=== PATIENT | female | born 1960 | race Caucasian/White ===

== ENCOUNTER 2016-12-18 14:08 | Emergency (ER) | payer MEDICARE, OTHER ==
[~2016-12-18] VITALS: Ht 167.6 cm; Wt 132.0 kg
[~2016-12-18 14:08] MED LIST: ALLO100T PO; ALLO300T PO; AMLO10TA2 PO; ATOR40TA59 PO; BACL10TA PO; CIPR500T PO; CLOB15CR2 TP; CLON1TAB3 PO; DIVA250T6 PO; DIVA500T9 PO; DOCU-27 PO; ESCI20TA PO; FLUT1DIS5 IH; FURO80TA3 PO; HYDR-963 PO; INSU100C SQ; INSU100I13 SQ; LEVO150T5 PO; MAGN400T3 PO; METF10002 PO; METO-269 PO; METO5TAB4 PO; METR500T4 PO; MORP30TA3 PO; ONDA4TAB12 PO; OXYB5TAB PO; POTA20TA4 PO; PRED20TA PO; PREG75CA PO; SPIR25TA3 PO; SUMA25TA3 PO; SUMA50TA3 PO; VENL75TA2 PO
[2016-12-18 14:42] VITALS: BP 131/61
--- NOTE | 2016-12-18 15:23 | PHYS DOC ---
Past Medical History Past Medical History: Cancer, COPD, Diabetes-Type II, Hypertension, Other Additional Past Medical Histor: DJD, OA, CHRONIC PAIN Past Surgical History: Appendectomy, Cholecystectomy, Hysterectomy, Other Additional Past Surgical Histo: BILAT KNEE, LAPAROSCOPY, BOWELL, HERNIA Alcohol Use: None Drug Use: None Adult General Chief Complaint Chief Complaint: ABSCESS HPI HPI Patient is a 56 year old female who presents with bump to L posterior thigh. Patient reports she has had a small bump on the back of her L leg just below her buttock. This has been present for the past month and a half, but today when she sat down she noticed it was bigger than it has been. No trauma to the area or other clear inciting event. It is painful when walking or sitting; she has taken hydrocodone occasionally when it becomes too painful. She denies fever or any other acute symptoms. Patient does report that about 5 days ago she finished a course of augmentin for an abscess on her R foot. Review of Systems Review of Systems Constitutional: Denies fever or chills Eyes: Denies change in visual acuity or eye pain HENT: Denies nasal congestion or sore throat Respiratory: Denies cough or shortness of breath Cardiovascular: Denies chest pain GI: Denies abdominal pain, nausea, vomiting, bloody stools or diarrhea : Denies dysuria or hematuria Musculoskeletal: Bump at base of L buttock Integument: Denies rash or skin lesions Neurologic: Denies headache, focal weakness or sensory changes Current Medications Current Medications Current Medications Medications (Trade) Dose Ordered Sig/Promise Start Time Stop Time Status Last Admin Dose Admin Oxycodone HCl (Roxicodone) 5 mg 1X ONCE 12/18/16 15:30 12/18/16 15:31 DC 12/18/16 15:30 5 MG Allergies Allergies Allergies Coded Allergies Type Severity Reaction Last Updated Verified butorphanol Allergy Intermediate Rash and veins in arms swelled 04/13/16 Yes fentanyl Allergy Intermediate BOWEL/BLADDER INCONTINENCE 04/13/16 Yes gabapentin Allergy Intermediate bowel and bladder incontinence 04/13/16 Yes nalbuphine Allergy Intermediate bowel/bladder incontinence 04/13/16 Yes Physical Exam Physical Exam Constitutional: Well developed, well nourished, no acute distress, non-toxic appearance HENT: Normocephalic, atraumatic, bilateral external ears normal Eyes: EOMI, conjunctiva normal, no discharge Neck: Normal range of motion, no stridor Cardiovascular: Heart rate normal, regular rhythm, no murmur Lungs & Thorax: Bilateral breath sounds clear to auscultation; wearing baseline O2 per NC Abdomen: Bowel sounds normal, soft, non-distended, no TTP Skin: Warm, dry, no erythema, no rash Extremities: 2x4cm mass at base of L buttock with overlying contusion, mildly TTP; no warmth to touch, erythema, fluctuance noted; bruising also noted to R medial leg near knee Neurologic: Alert and oriented X 3, no gross deficits noted Psychologic: Affect normal, judgement normal, mood normal Current Patient Data Vital Signs Vital Signs Date Time Temp Pulse Resp B/P Pulse Ox O2 Delivery O2 Flow Rate FiO2 12/18/16 15:30 20 94 3.0 12/18/16 14:42 97.7 68 131/61 Nasal Cannula 97.7 Lab Values Laboratory Tests Test 12/18/16 15:15 White Blood Count 5.6x10^3/uL (4.0-11.0) Red Blood Count 3.49x10^6/uL (3.50-5.40) L Hemoglobin 11.2g/dL (12.0-15.5) L Hematocrit 33.9% (36.0-47.0) L Mean Corpuscular Volume 97fL (79-100) Mean Corpuscular Hemoglobin 32pg (25-35) Mean Corpuscular Hemoglobin Concent 33g/dL (31-37) Red Cell Distribution Width 15.8% (11.5-14.5) H Platelet Count 181x10^3/uL (140-400) Neutrophils (%) (Auto) 72% (31-73) Lymphocytes (%) (Auto) 15% (24-48) L Monocytes (%) (Auto) 10% (0-9) H Eosinophils (%) (Auto) 3% (0-3) Basophils (%) (Auto) 1% (0-3) Neutrophils # (Auto) 4.0x10^3uL (1.8-7.7) Lymphocytes # (Auto) 0.8x10^3/uL (1.0-4.8) L Monocytes # (Auto) 0.5x10^3/uL (0.0-1.1) Eosinophils # (Auto) 0.2x10^3/uL (0.0-0.7) Basophils # (Auto) 0.0x10^3/uL (0.0-0.2) Prothrombin Time 13.2SEC (11.7-14.0) Prothrombin Time INR 1.1 (0.8-1.1) PTT 28SEC (24-38) Laboratory Tests 12/18/16 15:15 EKG EKG [] Radiology/Procedures Radiology/Procedures [] Course & Med Decision Making Course & Med Decision Making Pertinent Labs and Imaging studies reviewed. (See chart for details) Patient is 56-year-old female who presents with bump at left lower buttock. Physical exam reveals area that appears to be hematoma of unclear etiology. No evidence of abscess or cellulitis. Also has bruising medial right lower extremity. Will obtain CBC and coags to evaluate. Oral pain meds ordered for patient comfort. Labs notable for mild anemia at baseline. White blood count and platelets within normal limits; coags are okay. Discussed results with patient. Discussed need for close follow-up with PCP. Patient discharged with strict return precautions. Dragon Disclaimer Dragon Disclaimer This electronic medical record was generated, in whole or in part, using a voice recognition dictation system. Departure Departure Impression: Primary Impression: Hematoma Disposition: 01 HOME, SELF-CARE Condition: STABLE Referrals: MIKAELA RICHEY (PCP) Patient Instructions: Hematoma Additional Instructions: Thank you for allowing us to provide care today in the Emergency Department. Take the pain medication that you have at home for any further pain. Schedule a follow up appointment with your primary care doctor as soon as possible. Return promptly to the Emergency Department if you develop any new or concerning symptoms, such as fever. AMMY TOLENTINO MD Dec 18, 2016 15:23
[2016-12-18] MEDS ORDERED: OXYCODONE IR 5 MG TABLET. PO ONE (15:30)
[2016-12-18 15:33] LABS: BASO % 1 % (0-3); EOS % 3 % (0-3); HEMATOCRIT 33.9 % (36.0-47.0); HEMOGLOBIN 11.2 g/dL (12.0-15.5); LYMPH # 0.8 x10^3/uL (1.0-4.8); LYMPH % 15 % (24-48); MEAN CORPUSCULAR HEMOGLOBIN 32 pg (25-35); MEAN CORPUSCULAR HGB CONC 33 g/dL (31-37); MEAN CORPUSCULAR VOLUME 97 fL (79-100); MONO % 10 % (0-9); NEUT % 72 % (31-73); PLATELET COUNT 181 x10^3/uL (140-400); RED BLOOD COUNT 3.49 x10^6/uL (3.50-5.40); RED CELL DISTRIBUTION WIDTH 15.8 % (11.5-14.5); WHITE BLOOD COUNT 5.6 x10^3/uL (4.0-11.0)
[2016-12-18 15:45] LABS: INR 1.1 (0.8-1.1); PROTHROMBIN TIME PATIENT 13.2 SEC (11.7-14.0)
== END 2016-12-18 17:40 | disposition home or self-care (01) ==
LOC: ER 14:08
DX: M79.81 Nontraumatic hematoma of soft tissue (principal); G89.29 Other chronic pain; E11.9 Type 2 diabetes mellitus without complications; J44.9 Chronic obstructive pulmonary disease, unspecified; I10 Essential (primary) hypertension; M19.90 Unspecified osteoarthritis, unspecified site; Z88.8 Allergy status to other drugs, medicaments and biological substances
CPT/HCPCS: 36415; 85027; 85610; 85730; 99284

== ENCOUNTER 2017-01-18 13:03 | Inpatient (IN) | payer MEDICARE, OTHER ==
[~2017-01-18] VITALS: Ht 167.6 cm; Wt 129.3 kg
--- NOTE | 2017-01-18 14:25 | RAD ---
CT scan of the head without contrast 01/18/2017 Clinical History: Altered mental status. Head trauma.. Technique: Unenhanced, contiguous, 5 mm axial sections were obtained through the head. One or more of the following individualized dose reduction techniques were utilized for this study: 1. Automated exposure control. 2. Adjustment of the mA and/or kV according to patient size. 3. Use of iterative reconstruction technique. Findings: Comparison study is dated 04/07/2016. There is generalized parenchymal atrophy. Small scattered areas of decreased attenuation are seen within the periventricular and subcortical white matter of both cerebral hemispheres consistent with areas of small vessel ischemic disease. No acute parenchymal abnormality is seen. No extra-axial fluid collection is noted. No skull fracture is seen. Impression: No acute intracranial abnormality is seen.
--- NOTE | 2017-01-18 14:40 | RAD ---
Portable chest, 01/18/2017: History: Fall Comparison is made to a study from 11/20/2007. The heart size and pulmonary vascularity are at the upper limits of normal. No pulmonary infiltrates are seen. There is no evidence of pleural fluid or pneumothorax. There is a curvilinear radiopacity projected over the right hilum. This has the appearance of a tube fragment or other artifact. Is there a corresponding radiopacity on the surface of the patient? This was not visible on the previous study. A right shoulder prosthesis is in place. IMPRESSION: 1. No acute cardiopulmonary abnormality is detected. 2. Curvilinear radiopaque foreign body projected over the right hilum of uncertain significance.
--- NOTE | 2017-01-18 14:41 | RAD ---
Pelvis with right hip, 2 views, 01/18/2017: History: Fall No fracture or dislocation is identified. There are mild degenerative changes at the hip joints. Degenerative changes are also noted in the lower lumbar spine. IMPRESSION: No acute bony abnormality is detected.
[2017-01-18 15:05] LABS: BASO % 0 % (0-3); EOS % 3 % (0-3); HEMATOCRIT 32.2 % (36.0-47.0); HEMOGLOBIN 10.6 g/dL (12.0-15.5); LYMPH # 0.6 x10^3/uL (1.0-4.8); LYMPH % 14 % (24-48); MEAN CORPUSCULAR HEMOGLOBIN 32 pg (25-35); MEAN CORPUSCULAR HGB CONC 33 g/dL (31-37); MEAN CORPUSCULAR VOLUME 98 fL (79-100); MONO % 10 % (0-9); NEUT % 73 % (31-73); PLATELET COUNT 139 x10^3/uL (140-400); RED BLOOD COUNT 3.29 x10^6/uL (3.50-5.40); RED CELL DISTRIBUTION WIDTH 14.6 % (11.5-14.5); WHITE BLOOD COUNT 4.5 x10^3/uL (4.0-11.0)
[2017-01-18 15:27] LABS: CALCIUM 8.9 mg/dL (8.5-10.1); CREATININE 1.2 mg/dL (0.6-1.0); GFR 46.1; POTASSIUM 4.4 mmol/L (3.5-5.1)
[2017-01-18] MEDS ORDERED: NALOXONE 0.4 MG/ML VIAL. IV ONE (15:30)
[2017-01-18] MEDS ORDERED: IV NORMAL SALINE 500ML BAG 500 ML IV ONE (15:30)
[2017-01-18] MEDS ORDERED: ONDANSETRON PF 4 MG/2 ML VIAL. IV ONE (15:30)
[2017-01-18] MEDS: IV NORMAL SALINE 1000ML BAG 1,000 ML IV SCH (15:31)
[2017-01-18] MEDS ORDERED: ONDANSETRON PF 4 MG/2 ML VIAL. IV PRN (15:45)
--- NOTE | 2017-01-18 15:49 | PHYS DOC ---
Past Medical History Past Medical History: Cancer, COPD, Diabetes-Type II, Hypertension, Other Additional Past Medical Histor: DJD, OA, CHRONIC PAIN Past Surgical History: Appendectomy, Cholecystectomy, Hysterectomy, Other Additional Past Surgical Histo: BILAT KNEE, LAPAROSCOPY, BOWELL, HERNIA Alcohol Use: None Drug Use: None Adult General Chief Complaint Chief Complaint: MECHANICAL FALL HPI HPI 56-year-old female who presents after she states she had a brief syncopal episode after she was bending over to clean stool off herself at home. Patient is staying at [facility]. Patient is apparently opiate dependent and history of chronic pain. Patient at this time is acutely altered but is able to respond to painful stimulus and answer all my basic questions. She is requiring supplemental oxygen and in no acute distress. She has no obvious injuries but does complain of some right-sided hip pain that she states is new since her fall. She does have a ankle device from a previous injury. There is no obvious deformity or swelling seen in either upper or lower extremities. She denies any headache. She denies hitting her head. She is not on any blood thinners. Review of Systems Review of Systems Constitutional: Denies fever or chills [] Eyes: Denies change in visual acuity, redness, or eye pain [] HENT: Denies nasal congestion or sore throat [] Respiratory: Denies cough or shortness of breath [] Cardiovascular: No additional information not addressed in HPI [] GI: Denies abdominal pain, nausea, vomiting, bloody stools or diarrhea [] : Denies dysuria or hematuria [] Musculoskeletal: Denies back pain or joint pain [] Integument: Denies rash or skin lesions [] Neurologic: Denies headache, focal weakness or sensory changes [] Endocrine: Denies polyuria or polydipsia [] Current Medications Current Medications Current Medications Medications (Trade) Dose Ordered Sig/Promise Start Time Stop Time Status Last Admin Dose Admin Naloxone HCl 0.4 mg 0.4 mg 1X ONCE 01/18/17 15:30 01/18/17 15:31 DC Ondansetron HCl (Zofran) 4 mg 1X ONCE 01/18/17 15:30 01/18/17 15:31 DC Sodium Chloride (Iv Sodium Chloride 0.9% 500ml Bag) 500 ml @ 500 mls/hr 1X ONCE 01/18/17 15:30 01/18/17 16:29 Allergies Allergies Allergies Coded Allergies Type Severity Reaction Last Updated Verified butorphanol Allergy Intermediate Rash and veins in arms swelled 04/13/16 Yes fentanyl Allergy Intermediate BOWEL/BLADDER INCONTINENCE 04/13/16 Yes gabapentin Allergy Intermediate bowel and bladder incontinence 04/13/16 Yes nalbuphine Allergy Intermediate bowel/bladder incontinence 04/13/16 Yes Physical Exam Physical Exam Constitutional: Well developed, well nourished, no acute distress, non-toxic appearance. [] HENT: Normocephalic, atraumatic, bilateral external ears normal, oropharynx moist, no oral exudates, nose normal. [] Eyes: PERRLA, EOMI, conjunctiva normal, no discharge. [] Neck: Normal range of motion, no tenderness, supple, no stridor. [] Cardiovascular:Heart rate regular rhythm, no murmur [] Lungs & Thorax: Bilateral breath sounds clear to auscultation [] Abdomen: Bowel sounds normal, soft, no tenderness, no masses, no pulsatile masses. [] Skin: Warm, dry, no erythema, no rash. [] Back: No tenderness, no CVA tenderness. [] Extremities: No tenderness, no cyanosis, no clubbing, ROM intact, no edema. [] Neurologic: Appears somnolent but responds to loud voice and painful stimulus, normal motor function, normal sensory function, no focal deficits noted. [] Psychologic: Affect normal, judgement normal, mood normal. [] Current Patient Data Vital Signs Vital Signs Date Time Temp Pulse Resp B/P Pulse Ox O2 Delivery O2 Flow Rate FiO2 01/18/17 14:43 70 11 115/70 97 01/18/17 13:03 98.2 Room Air 98.2 Lab Values Laboratory Tests Test 01/18/17 14:55 White Blood Count 4.5x10^3/uL (4.0-11.0) Red Blood Count 3.29x10^6/uL (3.50-5.40) L Hemoglobin 10.6g/dL (12.0-15.5) L Hematocrit 32.2% (36.0-47.0) L Mean Corpuscular Volume 98fL (79-100) Mean Corpuscular Hemoglobin 32pg (25-35) Mean Corpuscular Hemoglobin Concent 33g/dL (31-37) Red Cell Distribution Width 14.6% (11.5-14.5) H Platelet Count 139x10^3/uL (140-400) L Neutrophils (%) (Auto) 73% (31-73) Lymphocytes (%) (Auto) 14% (24-48) L Monocytes (%) (Auto) 10% (0-9) H Eosinophils (%) (Auto) 3% (0-3) Basophils (%) (Auto) 0% (0-3) Neutrophils # (Auto) 3.3x10^3uL (1.8-7.7) Lymphocytes # (Auto) 0.6x10^3/uL (1.0-4.8) L Monocytes # (Auto) 0.4x10^3/uL (0.0-1.1) Eosinophils # (Auto) 0.1x10^3/uL (0.0-0.7) Basophils # (Auto) 0.0x10^3/uL (0.0-0.2) Sodium Level 144mmol/L (136-145) Potassium Level 4.4mmol/L (3.5-5.1) Chloride Level 101mmol/L (98-107) Carbon Dioxide Level 40mmol/L (21-32) H Anion Gap 3 (6-14) L Blood Urea Nitrogen 44mg/dL (7-20) H Creatinine 1.2mg/dL (0.6-1.0) H Estimated GFR (Cockcroft-Gault) 46.1 Glucose Level 107mg/dL (70-99) H Calcium Level 8.9mg/dL (8.5-10.1) Laboratory Tests 01/18/17 14:55 Laboratory Tests 01/18/17 14:55 EKG EKG EKG as interpreted by ca shows a sinus rhythm with a rate of 59 bpm. There is a leftward axis with a left anterior fasicular block. MN interval is prolonged at 222 ms. This EKG does not meet STEMI criteria. Radiology/Procedures Radiology/Procedures Portable chest, 01/18/2017: History: Fall Comparison is made to a study from 11/20/2007. The heart size and pulmonary vascularity are at the upper limits of normal. No pulmonary infiltrates are seen. There is no evidence of pleural fluid or pneumothorax. There is a curvilinear radiopacity projected over the right hilum. This has the appearance of a tube fragment or other artifact. Is there a corresponding radiopacity on the surface of the patient? This was not visible on the previous study. A right shoulder prosthesis is in place. IMPRESSION: 1. No acute cardiopulmonary abnormality is detected. 2. Curvilinear radiopaque foreign body projected over the right hilum of uncertain significance. CT scan of the head without contrast 01/18/2017 Clinical History: Altered mental status. Head trauma.. Technique: Unenhanced, contiguous, 5 mm axial sections were obtained through the head. One or more of the following individualized dose reduction techniques were utilized for this study: 1. Automated exposure control. 2. Adjustment of the mA and/or kV according to patient size. 3. Use of iterative reconstruction technique. Findings: Comparison study is dated 04/07/2016. There is generalized parenchymal atrophy. Small scattered areas of decreased attenuation are seen within the periventricular and subcortical white matter of both cerebral hemispheres consistent with areas of small vessel ischemic disease. No acute parenchymal abnormality is seen. No extra-axial fluid collection is noted. No skull fracture is seen. Impression: No acute intracranial abnormality is seen. Pelvis with right hip, 2 views, 01/18/2017: History: Fall No fracture or dislocation is identified. There are mild degenerative changes at the hip joints. Degenerative changes are also noted in the lower lumbar spine. IMPRESSION: No acute bony abnormality is detected. DICTATED and SIGNED BY: SANDEE SHAW MD DATE: 01/18/17 1438 CC: MIKAELA RICHEY; REBECCA TO DO ~ Course & Med Decision Making Course & Med Decision Making Pertinent Labs and Imaging studies reviewed. (See chart for details) 58-year-old female is acutely altered and was given a low dose of Narcan and fluid bolus. Her EKG was essentially unremarkable. Patient is still requiring supplementary oxygen and acutely altered and is a risk to harm herself. CT of her head was negative. Portable chest x-ray and right hip and pelvis views were negative for any acute fracture or injuries. She'll be admitted for ongoing altered mental status and syncopal episode her laboratory workup was fairly unremarkable. I discussed the need to admit the patient with the hospitalist, Dr. Mixon. I discussed the patient's case with the psychiatric assessment recruiting team lead, Casey, who states the patient is staying at the [facility] for ongoing schizoaffective disorder as well as PTSD. At this time she is too altered to have any sort of psychiatric workup but a consult will be placed. Krunal Disclaimer Krunal Disclaimer This electronic medical record was generated, in whole or in part, using a voice recognition dictation system. Departure Departure Impression: Primary Impression: Altered mental status Additional Impressions: Syncope Opiate misuse Referrals: MIKAELA RICHEY (PCP) Problem Qualifiers REBECCA TO DO Jan 18, 2017 15:49
--- NOTE | 2017-01-18 15:50 | EKG ---
[facility] [address] [place] [address] Test Date: 2017-01-18 Test Time: 15:42:36 Pat Name: POLO GALLEGOS Department: Room: Gender: F Director Critical Care: : 1960 Requested By: REBECCA TO Order Number: [id number] Reading MD: Ja Young Measurements Intervals Julian Rate: 59 P: 25 MS: 222 QRS: -38 QRSD: 106 T: 24 QT: 452 QTc: 452 Interpretive Statements SINUS RHYTHM PROLONGED MS INTERVAL ABNORMAL LEFT AXIS DEVIATION Electronically Signed On 01-31-2017 15:36:59 CDT by Ja Young
[2017-01-18 15:57] LABS: ETHANOL < 10 mg/dL (0-10)
--- NOTE | 2017-01-18 16:59 | ACF ---
Admission Forms Criteria MENTAL STATUS CHANGE Clinical Indications for Inpatient Care (Place 'X' for any and all applicable criteria): Ongoing inpatient care may be needed for 1 or more of the following(1)(2)(3)(5)( 6): [X]I. Suspected serious etiology (eg, medical disorder, FITTER UP event) of altered mental status [X]II. Danger to self or others not manageable at lower level of care [ ]III. Grave disability (eg, inability to perform self care necessary at lower level of care) [ ]IV. Agitation or inappropriate behavior interfering with care for primary condition (eg, attempting to discontinue lines or drains prematurely, unable to cooperate with respiratory care) [ ]V. Delirium [A] [D][E] as described by 1 or more of the following(26): [ ]a) Delirium due to alcohol or sedative [F] withdrawal [ ]b) Delirium of uncertain etiology that has not responded to appropriate empiric treatment [ ]c) Delirium that prevents performance of a life-sustaining function (eg, feeding or hydrating oneself) [ ]. General contraindications and/or Inappropriate clinical situations for Observational Care in patients with Mental Status Change, when ANY ONE of the following is required: [ ]a) Prediction of prolongation of LOS based on ANY ONE of the following may be considered as a contraindication for observational care 2, 3, 4, 5, 6, 7, 8, 9, 10, 11 [ ]i) Age > 65 yrs. [ ]ii) Patient arriving by ambulance [ ]iii) Patient with high acuity [ ]iv) Patient requiring vital sign monitoring [ ]v) Patient on IV medication [ ]b) Systolic blood pressures greater than or equal to 180mmHg 3, 12 [ ]c) Patient with altered mental status including delirium and other alteration of consciousness, (3) [ ]d) Patient whose discharge disposition will be to a intermediate home or rehabilitation home should not be managed in Emergency Department Observation Unit. CMS rule requires 3 days hospital stay before such placement.3,13 [ ]e) Patient with failure to thrive due to broad array of etiologies 3,16,17 [ ]f) Inability to ambulate 3,14 Extended stay beyond goal length of stay for the primary condition may be needed until ALL of the following are present(3)(5): [ ]a) Underlying medical etiology of mental status change is absent, or has been established and adequately treated [ ]b) Danger to self or others is absent or manageable at lower level of care. [ ]c) Behavior crisis management, including physical or chemical restraints, is not required or available at lower level of car [ ]d) Substance or alcohol withdrawal is absent or manageable at lower level of care. [ ]e) Behavioral symptoms (eg, agitation, somnolence, inappropriate behavior) are absent, or are manageable at lower level of care. The original [facility] content created by [facility] has been revised. The portions of the content which have been revised are identified through the use of italic text or in bold, and [facility] has neither reviewed nor approved the modified material. All other unmodified content is copyright [facility] [employer]. Please see references footnoted in the original [facility] edition 2016 Admission Criteria Met?: Yes KVNG SCHNEIDER Jan 18, 2017 16:59
[2017-01-18 17:06] LABS: BARBITURATES NEG (NEG); BENZODIAZEPINES NEG (NEG); CANNABINOIDS NEG (NEG); COCAINE NEG (NEG); METHADONE NEG (NEG); OPIATES POS (NEG); PHENCYCLIDINE NEG (NEG)
[2017-01-18 17:07] LABS: ETHANOL, URINE NEG (NEG)
[2017-01-18 17:26] LABS: BILIRUBIN,URINE NEGATIVE (NEG); GLUCOSE,URINE NEGATIVE (NEG); NITRITE,URINE NEGATIVE (NEG); PH,URINE 6.5; PROTEIN,URINE NEGATIVE (NEG-TRACE); UROBILINOGEN,URINE 0.2 mg/dL (0.2 mg/dL)
[2017-01-18 17:50] LABS: BACTERIA,URINE 0 /HPF (0-FEW); RBC,URINE 0 /HPF (0-2); SQUAMOUS EPITHELIAL CELL,UR OCC /LPF; WBC,URINE 0 /HPF (0-4)
[2017-01-18 18:36] VITALS: BP 127/60
[2017-01-18 19:56] VITALS: BP 100/48
[2017-01-18] MEDS ORDERED: FLUC100T4 PO (20:43)
[2017-01-18] MEDS ORDERED: ESCI20TA10 PO (20:43)
[2017-01-18] MEDS ORDERED: TOLT1TAB2 PO (20:43)
[2017-01-18] MEDS ORDERED: PREG50CA PO (20:43)
[2017-01-18] MEDS ORDERED: ATOR20TA58 PO (20:43)
[2017-01-18] MEDS ORDERED: METF10002 PO (20:43)
[2017-01-18] MEDS ORDERED: FURO20TA3 PO (20:43)
[2017-01-18] MEDS ORDERED: METO50TA10 PO (20:43)
[2017-01-18] MEDS ORDERED: DIVA500T4 PO (20:43)
[2017-01-18] MEDS ORDERED: FLUT1DIS3 IH (20:43)
[2017-01-18] MEDS ORDERED: ASPI81TA2 PO (20:43)
[2017-01-18] MEDS ORDERED: CLONAZEPAM 1 MG TABLET. PO PRN (20:45)
[2017-01-18] MEDS ORDERED: ATORVASTATIN CALCIUM 20 MG TABLET PO SCH (21:00)
[2017-01-18] MEDS ORDERED: METFORMIN 1,000 MG TABLET PO SCH (21:00)
[2017-01-18] MEDS ORDERED: DIVALPROEX EXTENDED RELEASE 500 MG TAB.ER.24H. PO SCH (21:00)
[2017-01-18] MEDS ORDERED: NON FORMULARY ITEM (Fluticasone/Salmeterol (Advair 250-50 Diskus) 1 PUFF) IH SCH (21:00)
[2017-01-18] MEDS ORDERED: METOPROLOL SUCC 24HR ER 50 MG TAB.ER.24H. PO SCH (21:00)
[2017-01-18] MEDS: OXYBUTYNIN CHLORIDE 5 MG TABLET PO SCH (22:00)
[2017-01-18] MEDS ORDERED: METOPROLOL TART IMMED RELEASE 25 MG TABLET. PO SCH (22:00)
[2017-01-18] MEDS: PREGABALIN 50 MG CAPSULE PO SCH (22:00)
[2017-01-18 23:00] VITALS: BP 147/85
[2017-01-19] MEDS: IV NORMAL SALINE 1000ML BAG 1,000 ML IV SCH (01:31)
--- NOTE | 2017-01-19 01:33 | DS ---
DATE OF DISCHARGE: 01/18/2017 SHORT STAY AND DISCHARGE SUMMARY CHIEF COMPLAINT: Mechanical fall. HISTORY OF PRESENT ILLNESS: The patient is a 56-year-old morbidly obese woman with past medical history of COPD, diabetes, chronic pain, who is currently residing at [facility] with psychiatric issues of schizoaffective disorder as well as PTSD. She relates she had an episode of falling in the bathroom when trying to wipe and reaching for toilet paper, apparently not immediately handy. She is not sure if she blacked out a little bit. On arrival in the Emergency Room, she had altered mental status with increased lethargy. She, however, could answer all questions coherently. She was admitted for suspicion of drug overdose, although Narcan response in the Emergency Room was minimal. PAST MEDICAL HISTORY: COPD, diabetes type 2, hypertension, chronic pain, history of cancer, osteoarthritis, schizoaffective disorder, and PTSD. FAMILY HISTORY: Positive for hypertension and diabetes. SOCIAL HISTORY: Currently at [facility]. Quit smoking in 2004. Denies any alcohol use or drug use. ALLERGIES: BUTORPHANOL, FENTANYL, GABAPENTIN, AND NALBUPHINE. MEDICATIONS: MAR reconciled with home medications. REVIEW OF SYSTEMS: The patient denies any pain or other issues currently. PHYSICAL EXAMINATION: VITAL SIGNS: From today show a blood pressure of 127/60, heart rate 67, respiratory rate at 14, she is afebrile. GENERAL: This is a morbidly obese woman, very lethargic, but responding appropriately to questions. HEENT: Shows no scleral icterus. Eyelids are heavy and she is falling asleep easily. Oral mucosa is pink and moist. NECK: Supple. LUNGS: Clear to auscultation bilaterally. CARDIOVASCULAR: Heart is regular rate and rhythm. ABDOMEN: Morbidly obese, organs could not be palpated. EXTREMITIES: Show no edema. SKIN: Warm, soft and dry without any rash. LABORATORY DATA: CBC with a WBC of 4.5, hemoglobin 10.6, platelets of 139. Chemistries with a BUN and creatinine of 44 and 1.2. Electrolytes within normal limits. Glucose at 107. Tox screen positive for opiates and no other substances. Urine negative for infection. IMAGING STUDIES: Chest x-ray shows no acute cardiopulmonary abnormality. CT of the head obtained as well without any abnormality, as were x-rays of hip and pelvis. ASSESSMENT AND PLAN: The patient is a 56-year-old woman with multiple medical as well as psychiatric issues, presenting after a fall. She clearly appears overdosed on sedating medications. We will hold all these for the time being. We will reassess in the morning. Anticipate she will be discharged on 01/19/2017. DISCHARGE DATE: 01/19/2017 DISCHARGE DISPOSITION: To [facility]. DISCHARGE CONDITION: Improved. DISCHARGE MEDICATIONS: Please refer to MAR. DISCHARGE INSTRUCTIONS: The patient will follow up with PCP as well as her psychiatrist JULIO CESAR. MERLY COOK MD DR: UR/nts JOB#: [id number] / [id number] SOO
[2017-01-19 03:30] VITALS: BP 122/59
[2017-01-19 05:48] LABS: BASO % 0 % (0-3); EOS % 3 % (0-3); HEMATOCRIT 28.1 % (36.0-47.0); HEMOGLOBIN 9.3 g/dL (12.0-15.5); LYMPH # 0.8 x10^3/uL (1.0-4.8); LYMPH % 16 % (24-48); MEAN CORPUSCULAR HEMOGLOBIN 32 pg (25-35); MEAN CORPUSCULAR HGB CONC 33 g/dL (31-37); MEAN CORPUSCULAR VOLUME 97 fL (79-100); MONO % 10 % (0-9); NEUT % 72 % (31-73); PLATELET COUNT 154 x10^3/uL (140-400); RED CELL DISTRIBUTION WIDTH 14.9 % (11.5-14.5); WHITE BLOOD COUNT 4.8 x10^3/uL (4.0-11.0)
[2017-01-19 06:04] LABS: CALCIUM 8.7 mg/dL (8.5-10.1); CREATININE 1.1 mg/dL (0.6-1.0); POTASSIUM 4.3 mmol/L (3.5-5.1)
[2017-01-19 07:50] VITALS: BP 130/58
[2017-01-19] MEDS ORDERED: ALBUTEROL SULFATE 2.5 MG/3 ML NEBU. NEB SCH (08:00)
[2017-01-19] MEDS ORDERED: POTASSIUM CHLORIDE 20 MEQ TABLET.ER. PO SCH (08:00)
[2017-01-19] MEDS ORDERED: BUDESONIDE 0.5 MG/2 ML NEBU. NEB SCH (08:00)
[2017-01-19] MEDS ORDERED: METFORMIN 1,000 MG TABLET PO SCH (08:00)
[2017-01-19] MEDS: IPRATRPIUM/ALBUTEROL 0.5/2.5MG 3 ML NEBU. NEB SCH ×2 (08:25→11:24)
[2017-01-19] MEDS: OXYBUTYNIN CHLORIDE 5 MG TABLET PO SCH (08:52)
[2017-01-19] MEDS: PREGABALIN 50 MG CAPSULE PO SCH (08:53)
[2017-01-19] MEDS ORDERED: ESCITALOPRAM 10 MG TABLET. PO SCH (09:00)
[2017-01-19] MEDS ORDERED: AMLODIPINE BESYLATE 5 MG TABLET. PO SCH (09:00)
[2017-01-19] MEDS ORDERED: FLUCONAZOLE 100 MG TABLET. PO SCH (09:00)
[2017-01-19] MEDS ORDERED: FUROSEMIDE 20 MG TABLET PO SCH (09:00)
[2017-01-19] MEDS ORDERED: ALLOPURINOL 100 MG TABLET. PO SCH (09:00)
[2017-01-19] MEDS ORDERED: ASPIRIN CHEWABLE 81 MG TABLET. PO SCH (09:00)
[2017-01-19] MEDS ORDERED: METO25TA4 PO (11:43)
[2017-01-19 11:50] VITALS: BP 118/55
[2017-01-19 15:00] VITALS: BP 125/63
== END 2017-01-19 15:45 | disposition short-term general hospital (02) | DRG 917 ==
LOC: ER 13:03 → 6 SOUTH 14:56 → 2 SOUTH 18:04
PROVIDERS: ADMIT Internal Medicine; ATTEND Internal Medicine
PROC: 5A09357 Assistance with Respiratory Ventilation, Less than 24 Consecutive Hours, Continuous Positive Airway Pressure (ICD-10-PCS; principal; 2017-01-18)
DX: T40.601A Poisoning by unspecified narcotics, accidental (unintentional), initial encounter (principal); G92 Toxic encephalopathy; J44.9 Chronic obstructive pulmonary disease, unspecified; I10 Essential (primary) hypertension; F43.10 Post-traumatic stress disorder, unspecified; F25.9 Schizoaffective disorder, unspecified; E66.01 Morbid (severe) obesity due to excess calories; E11.9 Type 2 diabetes mellitus without complications; G89.29 Other chronic pain; M19.90 Unspecified osteoarthritis, unspecified site; R55 Syncope and collapse; W18.39XA Other fall on same level, initial encounter; Z82.49 Family history of ischemic heart disease and other diseases of the circulatory system; Z87.891 Personal history of nicotine dependence; Z83.3 Family history of diabetes mellitus; Y92.098 Other place in other non-institutional residence as the place of occurrence of the external cause; Z90.49 Acquired absence of other specified parts of digestive tract; Y93.89 Activity, other specified; Y92.091 Bathroom in other non-institutional residence as the place of occurrence of the external cause; Y99.8 Other external cause status; Z90.710 Acquired absence of both cervix and uterus; Z88.8 Allergy status to other drugs, medicaments and biological substances
CPT/HCPCS: 36415; 51702; 70450; 71010; 73502; 80048; 81001; 82947; 84484; 85027; 93005; 94250; 94640; 94660; 96374; 96375; G0480; G0481; G6038; J2310; J2405; J7040; J7620; 80196; 99285-25

== ENCOUNTER → 2017-01-25 | Outpatient (CLI) | payer MEDICARE, OTHER ==
[2017-01-19 15:00] VITALS: BP 125/63
[~2017-01-25] MED LIST changes: +ASPI81TA2 PO; +ATOR20TA58 PO; +DIVA500T4 PO; +ESCI20TA10 PO; +FLUC100T4 PO; +FLUT1DIS3 IH; +FURO20TA3 PO; +METO25TA4 PO; +METO50TA10 PO; +PREG50CA PO; +TOLT1TAB2 PO
[2017-01-25 15:19] LABS: BASO % 1 % (0-3); EOS % 1 % (0-3); HEMATOCRIT 35.7 % (36.0-47.0); HEMOGLOBIN 11.9 g/dL (12.0-15.5); LYMPH # 0.8 x10^3/uL (1.0-4.8); LYMPH % 11 % (24-48); MEAN CORPUSCULAR HEMOGLOBIN 32 pg (25-35); MEAN CORPUSCULAR HGB CONC 33 g/dL (31-37); MEAN CORPUSCULAR VOLUME 95 fL (79-100); MONO % 8 % (0-9); NEUT % 79 % (31-73); PLATELET COUNT 223 x10^3/uL (140-400); RED BLOOD COUNT 3.77 x10^6/uL (3.50-5.40); RED CELL DISTRIBUTION WIDTH 14.4 % (11.5-14.5)
[2017-01-25 15:36] LABS: BILIRUBIN,URINE NEGATIVE (NEG); GLUCOSE,URINE NEGATIVE (NEG); NITRITE,URINE NEGATIVE (NEG); PROTEIN,URINE NEGATIVE (NEG-TRACE); UROBILINOGEN,URINE 0.2 mg/dL (0.2 mg/dL)
[2017-01-25 15:45] LABS: % SAT IRON 28 % (15-34); IRON,SERUM 108 ug/dL (50-170)
[2017-01-25 15:50] LABS: BACTERIA,URINE FEW /HPF (0-FEW); RBC,URINE 0 /HPF (0-2); SQUAMOUS EPITHELIAL CELL,UR MOD /LPF; WBC,URINE 0 /HPF (0-4)
[2017-01-25 16:00] LABS: CALCIUM 9.5 mg/dL (8.5-10.1); CREATININE 1.5 mg/dL (0.6-1.0); GFR 35.7; MAGNESIUM 2.4 mg/dL (1.8-2.4); POTASSIUM 4.7 mmol/L (3.5-5.1)
[2017-01-26 08:29] LABS: UR PROTEIN RD 5.5 mg/dL (Not Estab.)
== END | disposition home or self-care (01) ==
LOC: LAB 14:56
PROVIDERS: ATTEND Internal Medicine Nephrology
DX: I12.9 Hypertensive chronic kidney disease with stage 1 through stage 4 chronic kidney disease, or unspecified chronic kidney disease (principal); N18.2 Chronic kidney disease, stage 2 (mild); R60.9 Edema, unspecified; E83.42 Hypomagnesemia; E87.6 Hypokalemia; E11.29 Type 2 diabetes mellitus with other diabetic kidney complication; D63.1 Anemia in chronic kidney disease; E66.01 Morbid (severe) obesity due to excess calories
CPT/HCPCS: 36415; 80048; 81001; 82570; 82728; 83540; 83550; 83735; 84100; 84156; 85027